=== PATIENT | female | born 1990 | race Caucasian/White ===

== ENCOUNTER 2021-08-31 01:16 | Emergency (ER) | payer OTHER, BC ==
[2021-08-31] MEDS ORDERED: Ketorolac Tromethamine 30 MG/ML VIAL ONE (01:35)
[2021-08-31] MEDS ORDERED: Orphenadrine Citrate 60 MG/2 ML VIAL IM SCH (01:45)
== END 2021-08-31 02:18 | disposition home or self-care (01) ==
LOC: CSHERS 01:16
DX: M54.6 Pain in thoracic spine (principal); M25.512 Pain in left shoulder; V43.52XA Car driver injured in collision with other type car in traffic accident, initial encounter
CPT/HCPCS: 71045; 96372; J1885; J2360